=== PATIENT | female | born 1990 | race Caucasian/White ===

== ENCOUNTER 2020-06-18 13:23 | Emergency (ER) | payer MEDICAID ==
[~2020-06-18] VITALS: Ht 162.6 cm; Wt 132.0 kg
[2020-06-18 13:39] VITALS: BP 158/95; Ht 162.6 cm; Wt 132.0 kg
[2020-06-18 15:07] LABS: RED CELL DISTRIBUTION WIDTH 13.9 % (12.3-17.7)
[2020-06-18 15:08] LABS: BASOPHIL % 0.3 % (0.2-1.3); PLATELET COUNT 371 x10^3mcL (179-408)
== END 2020-06-18 16:40 | disposition home or self-care (01) ==
LOC: ED 13:23
PROVIDERS: Emergency Medicine
DX: N93.8 Other specified abnormal uterine and vaginal bleeding (principal); I10 Essential (primary) hypertension